=== PATIENT | male | born 2000 | race Two or more races ===

== ENCOUNTER 2020-10-02 14:48 | Emergency (ER) | payer OTHER ==
[2020-10-02] MEDS ORDERED: BUFFERED LIDOCAINE 10 ML SYRINGE SUBQ STA (15:07)
[2020-10-02] MEDS ORDERED: BUPIVACAINE 0.5% PF 10 ML VIAL SUBQ STA (15:07)
--- NOTE | 2020-10-02 15:46 | ED Physician Documentation ---
History of Present Illness - Stated complaint Stated Complaint: RIGHT TOE PX - Chief complaint Chief Complaint: Ext Problem - History obtained from History obtained from: Patient, Family - History of Present Illness Timing: How many weeks ago (6) - Additonal information Additional information: 19-year-old male has been having an issue with an ingrown toenail on his right great toe for the past 6 weeks. He has had this cut back previously it is now growing in more and he is here for treatment. Review of Systems Constitutional: denies: Fever Respiratory: denies: Cough GI: denies: Vomiting Musculoskeletal: reports: Extremity swelling, Other (toenail is ingrown on right great). denies: Joint pain Neurologic: denies: Generalized weakness, Focal weakness, Numbness PD PAST MEDICAL HISTORY - Allergies Allergies/Adverse Reactions: Allergies Allergy/AdvReac Type Severity Reaction Status Date / Time No Known Drug Allergies Allergy Verified 10/02/20 14:59 PD ED PE NORMAL - Vitals Vital signs reviewed: Yes (normal ) - General General: Alert and oriented X 3, No acute distress, Well developed/nourished - HEENT HEENT: Atraumatic, PERRL, EOMI - Respiratory Respiratory: No respiratory distress - Derm Derm: Normal color, Warm and dry, No rash - Extremities Extremities: Other (The right great toenail is ingrown on the distal one third there is mild inflammation and no drainage) - Neuro Neuro: Alert and oriented X 3, office professionals 2-12 intact, No motor deficit, No sensory deficit, Normal speech Eye Opening: Spontaneous Motor: Obeys Commands Verbal: Oriented GCS Score: 15 - Psych Psych: Normal mood, Normal affect Results - Vitals Vitals: Vital Signs - 24 hr 10/02/20 14:54 Temperature 36 C L Heart Rate 75 Respiratory 15 Rate Blood Pressure 130/80 O2 Saturation 99 Oxygen O2 Source Room air Procedures - General procedure General procedure: Ingrown toenail: With use of 1% lidocaine and 0.5% bupivacaine mixture 50-50 a digital block is performed on the right great toe after cleansing with chlorhexidine. This provided excellent anesthesia. The toes are cleansed with hebicleanse and with the use of a nail sectioning scissor the nail was sectioned one quarter of the lateral aspect. It was grasped with a Platypus forceps and removed without difficulty. Patient tolerated the procedure well. PD MEDICAL DECISION MAKING - ED course Complexity details: considered differential, d/w patient, d/w family ED course: 19 y/o male with ingrown toenail has the toenail sectioned and tolerates this well. Departure - Departure Disposition: 01 Home, Self Care Clinical Impression: Ingrown nail of great toe of right foot Condition: Stable Instructions: ED Ingrown Toenail Excised Follow-Up: JUSTIN Quinonez [Provider Group]
[2020-10-02 16:03] VITALS: BP 112/56
== END 2020-10-02 16:03 | disposition home or self-care (01) ==
LOC: ED 14:48
DX: L60.0 Ingrowing nail (principal)
CPT/HCPCS: 11765; 99282

== ENCOUNTER 2023-05-23 14:24 | Outpatient (CLI) | payer OTHER ==
--- NOTE | 2023-05-23 15:58 | XRAY Report ---
PROCEDURE: Wrist 3+V LT INDICATIONS: WRIST JOINT PAIN, LEFT TECHNIQUE: 3 views of the wrist were acquired. COMPARISON: None. FINDINGS: Bones: No fractures or dislocations. No suspicious bony lesions. Soft tissues: No suspicious soft tissue calcifications or masses. IMPRESSION: No acute bony abnormality. If there is anatomic snuff box tenderness, consider wrist immobilization a nd repeat radiographs in 10-14 days or cross-sectional imaging now. If pain persists with conservativ e management, consider repeat radiographs in 10-14 days or cross-sectional imaging. Reviewed by: Junie Hackett MD on 05/23/2023 3:57 PM PST Approved by: Junie Hackett MD on 05/23/2023 3:57 PM PST Station ID: [id number]
--- NOTE | 2023-05-24 07:44 | XRAY Report ---
PROCEDURE: Chest 2V INDICATIONS: CHEST WALL PAIN,WRIST JOINT PAIN TECHNIQUE: 2 views of the chest were acquired. COMPARISON: None. FINDINGS: Surgical changes and devices: None. Lungs and pleura: No pleural effusions or pneumothorax. Lungs are clear. Mediastinum: Mediastinal contours appear normal. Heart size is normal. Bones and chest wall: No suspicious bony lesions. Overlying soft tissues appear unremarkable. IMPRESSION: No acute cardiopulmonary process. Reviewed by: Eliseo Ghosh MD on 05/24/2023 7:42 AM [facility] Approved by: Eliseo Ghosh MD on 05/24/2023 7:42 AM [facility] Station ID: [id number]
== END 2023-05-23 14:25 | disposition home or self-care (01) ==
LOC: DI 14:24
PROVIDERS: ATTEND Family Medicine
DX: R07.89 Other chest pain (principal); M25.532 Pain in left wrist